=== PATIENT | male | born 1975 | race Caucasian/White ===

== ENCOUNTER 2023-01-09 10:07 | Emergency (ER) | payer OTHER ==
[~2023-01-09] VITALS: Ht 172.7 cm; Wt 75.0 kg
[2023-01-09 10:14] VITALS: BP 142/102
== END 2023-01-09 16:40 | disposition home or self-care (01) ==
LOC: ER 10:07
DX: R42 Dizziness and giddiness (principal)
CPT/HCPCS: 99284